=== PATIENT | female | born 1940 | race Caucasian/White ===

== ENCOUNTER 2018-02-13 14:34 | Outpatient (CLI) | payer MEDICARE, OTHER | END 2018-02-13 14:35 | disposition home or self-care (01) | LOC: BICMAMMO 14:34 | PROVIDERS: ATTEND Family Medicine | DX: Z12.31 Encounter for screening mammogram for malignant neoplasm of breast (principal); Z13.820 Encounter for screening for osteoporosis; M85.89 Other specified disorders of bone density and structure, multiple sites | CPT/HCPCS: 77063; 77067; 77080 ==

== ENCOUNTER 2018-07-26 10:46 | Outpatient (CLI) | payer MEDICARE, OTHER ==
[~2018-07-26 10:46] MED LIST: Furosemide 40 MG/4 ML VIAL ONE
--- NOTE | 2018-07-26 16:09 | NM ---
NUCLEAR MEDICINE RENOGRAM HIPN LASIX 07/26/18 HISTORY: Hydronephrosis. COMPARISON: CT chest, abdomen and pelvis 06/27/18. FINDINGS: The exam was performed after the intravenous administration of 8.8 millicuries technetium 99m MAG3. 2 6.3 mg Lasix IV was administered a few minutes prior to imaging. There split function is 44.3% on the left and 35.7% on the right. The time of one half max is 37.5 mi nutes on the left and 7.8 minutes on the right. There is delayed asymmetric enhancement of the left kidney relative to the right. There is also delay ed excretion of the left kidney relative to the right. IMPRESSION: 1. Mild left hydronephrosis with increased T1/2 max of 37.5 minutes. 2. Split function 44.3% on the left and 55.7% on the right. POS: [facility] [place]
== END 2018-07-26 10:47 | disposition home or self-care (01) ==
LOC: NM 10:46
PROVIDERS: ATTEND Urology
DX: N13.39 Other hydronephrosis (principal)
CPT/HCPCS: 78708; A4641; A9562; J1940

== ENCOUNTER 2018-11-18 00:19 | Outpatient (CLI) | payer MEDICARE, OTHER ==
[2018-11-18 16:49] LABS: Hemoglobin 9.7 g/dL (12.0-16.0); Mean Corpuscular HGB CONC 33.5 g/dL (32.0-36.0); Mean Corpuscular Hemoglobin 31.5 pg (27.0-31.0); Mean Corpuscular Volume 94.1 fL (78.0-98.0); Mean Platelet Volume 8.2 fL (7.4-10.4); Platelet Count 158 thou/uL (130-400); RBC Distribution Width 11.5 % (11.5-14.5); Red Blood Cell (RBC) Count 3.06 mill/uL (4.20-5.40); White Blood Cell (WBC) Count 5.6 thou/uL (4.8-10.8)
[2018-11-18 17:30] LABS: Anion Gap 12 mmol/L (10-20); BUN (Urea Nitrogen) 37 mg/dL (9.8-20.1); Calc. Creatinine Clearance 0 mL/min (70-130); Calcium 9.9 mg/dL (7.8-10.44); Carbon Dioxide 29 mmol/L (23-31); Chloride 106 mmol/L (98-107); Estimated GFR-MDRD 34; Glucose 78 mg/dL (83-110); Potassium 4.6 mmol/L (3.5-5.1); Sodium 142 mmol/L (136-145)
== END 2018-11-18 00:20 | disposition home or self-care (01) ==
LOC: LABBT 00:19
PROVIDERS: ATTEND Urology
DX: Z01.812 Encounter for preprocedural laboratory examination (principal); N13.39 Other hydronephrosis; Q61.9 Cystic kidney disease, unspecified; R39.11 Hesitancy of micturition; R35.1 Nocturia; R31.29 Other microscopic hematuria; Z87.440 Personal history of urinary (tract) infections
CPT/HCPCS: 80048; 81001; 85027; 87086; 87186

== ENCOUNTER 2018-11-26 08:00 | Day surgery (SDC) | payer MEDICARE, OTHER ==
[2018-11-18 15:31] VITALS: BMI 19.3
[2018-11-26] MEDS ORDERED: Fentanyl 100 MCG/2 ML VIAL ONE (10:02)
[2018-11-26] MEDS ORDERED: Iothalamate Meglumine 60% 50 ML VIAL FS ONE (10:13)
--- NOTE | 2018-11-26 11:01 | RAD ---
Exam: Retrograde pyelogram: HISTORY: Renal stone Contrast is injected with dilatation of the left upper renal collecting system. There appears to be g ood drainage on post drainage imaging. IMPRESSION: Dilatation of the left upper renal collecting system.
[2018-11-26] MEDS ORDERED: Phenazopyridine HCl 97.5 MG TABLET ONE ×2 (12:56)
[2018-11-26] MEDS ORDERED: diphenhydrAMINE 50 MG/ML VIAL ONE (15:16)
[2018-11-26] MEDS ORDERED: Lidocaine 1% PF 5 ML VIAL ONE (15:16)
[2018-11-26] MEDS ORDERED: Dexamethasone 20 MG/5 ML VIAL ONE (15:16)
[2018-11-26] MEDS ORDERED: PROPOFOL 200 MG/20 ML VIAL ONE (15:16)
[2018-11-26] MEDS ORDERED: Ondansetron PF 4 MG/2 ML Vial ONE (15:16)
--- NOTE | 2018-11-26 21:05 | OP ---
DATE OF PROCEDURE: 11/26/2018 PREOPERATIVE DIAGNOSIS: Left hydronephrosis with obstruction. POSTOPERATIVE DIAGNOSIS: Left hydronephrosis with obstruction, presumably from mass effect from a simple renal cyst. ANESTHESIA: General with laryngeal mask airway. FINDINGS: Normal caliber ureter into a narrowing at the UPJ, which appeared consistent with obstruction from the mass effect from the cyst previously noted on imaging before the procedure. SPECIMENS: Urine from the left renal pelvis sent for cytology. COMPLICATIONS: No complications. DRAIN REMAINING: A 6 x 28. BLOOD LOSS: No blood loss. INDICATIONS FOR PROCEDURE: The patient is a 78-year-old female who is seen in the office with weight loss over the past couple of years; however, hydronephrosis was instantly noted and the renal scan showed that there was obstruction. She has unusual anatomy and she has a large simple cyst that does appear to be pressing on the renal pelvis and other than that, I saw no concern for a crossing vessel or filling defect that would be sales promotion representative of a source of obstruction, so she was set up for a retrograde pyelogram and possible stent. DESCRIPTION OF PROCEDURE: The patient was brought into the room by Anesthesia, laid on the table into the supine position. After receiving general anesthetic, her legs were placed in lithotomy position and her perineum was prepped and draped in sterile fashion. Using a 21-Afghan cystoscope and 30-degree lens, the urethra was traversed and bladder inspected. The left UO was intubated with the Pollack catheter. A retrograde pyelogram was performed revealing a fine caliber ureter without any hydronephrosis up to the level of the UPJ where there was what appeared to be mass effect from a large simple cyst that was creating obstruction at this area and then significant hydronephrosis was noted. At this point, a wire was easily advanced into the hydronephrotic portion. The Pollack catheter advanced over it and then approximately 15 mL yellow urine was sent for specimen for cytology. Measurements were taken for 6 x 28 double-J, which was placed over the wire with a coil visualized in the renal pelvis and a coil visualized in the bladder. It did note that the caliber of the ureter did appear small as the stent was difficult to pass, however, had not been wet prior to placement, but it was hard to say whether this was more difficult than normal based on the this. At this time, the scope was broken apart, the bladder drained and then removed in its entirety, leaving the internal double-J stent. The patient was awakened, and transferred to PACU in stable condition. Job ID: [id number] MTDD
== END 2018-11-26 14:00 | disposition home or self-care (01) ==
LOC: SDC 08:00
PROVIDERS: ATTEND Urology
PROC: BT1FZZZ Fluoroscopy of Left Kidney, Ureter and Bladder (ICD-10-PCS; principal; 2018-11-26)
PROC: 0T778DZ Dilation of Left Ureter with Intraluminal Device, Via Natural or Artificial Opening Endoscopic (ICD-10-PCS; 2018-11-26)
DX: N13.39 Other hydronephrosis (principal); N13.8 Other obstructive and reflux uropathy; Q61.01 Congenital single renal cyst; E78.5 Hyperlipidemia, unspecified; E05.00 Thyrotoxicosis with diffuse goiter without thyrotoxic crisis or storm; Z87.440 Personal history of urinary (tract) infections; Z79.899 Other long term (current) drug therapy; Z88.1 Allergy status to other antibiotic agents; Z88.5 Allergy status to narcotic agent
CPT/HCPCS: 52332; 74420; 88112; C1758; C1769; J0690; J3010; Q9961

== ENCOUNTER 2018-12-05 09:13 | Outpatient (CLI) | payer MEDICARE, OTHER ==
--- NOTE | 2018-12-05 16:56 | NM ---
Radionucleotide renogram HISTORY: Left hydronephrosis. COMPARISON: 07/26/2018. FINDINGS: Arterial phase images show significantly increased uptake of the right kidney compared to t he left. Right kidney: Time to maximum 2.2 minutes. Half max 11.4 minutes. Left kidney: Time to maximum reported at 0.35 minutes, although graft shows that there is poor uptake of the left kidney throughout the exam. Half max unable to be calculated. Due to technical factors at the time of the exam, GFR is unable to be accurately calculated. The right kidney accounts for 73% of uptake in the left 27%. IMPRESSION: Poor uptake and function of the left kidney without evidence of obstruction. Right kidney accounts for 73% of the uptake.
== END 2018-12-05 09:14 | disposition home or self-care (01) ==
LOC: NM 09:13
DX: N13.39 Other hydronephrosis (principal); Q61.9 Cystic kidney disease, unspecified
CPT/HCPCS: 78708; A4641; A9562

== ENCOUNTER 2019-01-27 11:20 | Outpatient (CLI) | payer MEDICARE, OTHER ==
--- NOTE | 2019-01-28 09:03 | NM ---
Nuclear medicine renogram with furosemide: DATE: 01/27/2019 HISTORY: 78-year-old female with severe left hydronephrosis. TECHNIQUE: 26.2 mg Lasix (furosemide) injected IV. 15 minutes later, 8.2 mCi of technetium 99m-MAG3 injected IV. Immediate post injection dynamic scintigraphy of abdomen and pelvis performed with Jalloh catheter in place, for 50 minutes. Counts obtained over the kidneys, and time-activity curve plotted. FINDINGS: Parameter: Left right Split function: 30 %, 70 % Time of max: 4.4 min, 4.4 minutes Time of half max: 27 min, 12 minutes On the time-activity curve, the peak activity of both the right and left kidney occur at the same geovany e. The right renal peak is much higher than the left. The left renal peak is higher than it was on 12/05/2018, when it was fairly flat. On 12/05/2018, the washout curve and washout scintigraphy of the lef t kidney was so flat that there was no half-time of maximum. On the current study, there is a half-time of maximum for the left kidney, albeit delayed. The time to peak of 4.4 minutes is normal f or both kidneys. The half-time of washout for the right kidney is slightly delayed. IMPRESSION: Decreased left renal function, with slow washout. However, this has improved compared to 12/05/2018.
== END 2019-01-27 11:21 | disposition home or self-care (01) ==
LOC: NM 11:20
PROVIDERS: ATTEND Urology
DX: N28.89 Other specified disorders of kidney and ureter (principal)
CPT/HCPCS: 78708; A4641; A9562

== ENCOUNTER 2019-03-07 08:33 | Outpatient (CLI) | payer MEDICARE, OTHER ==
[~2019-03-07 08:33] MED LIST changes: -Furosemide 40 MG/4 ML VIAL ONE; +Sodium Bicarbonate 2.5 MEQ/5 ML VIAL ONE
--- NOTE | 2019-03-07 10:18 | ULT ---
RENAL ULTRASOUND: Date: 03/07/2019 COMPARISON: Multiple prior imaging studies including CT examinations, most recent dated 03/05/2019. HISTORY: Renal disorder, reevaluate left-sided hydronephrosis. TECHNIQUE: Multiplanar grayscale sonographic imaging of the kidneys and urinary bladder obtained. FINDINGS: Right kidney measures 10.0 x 4.0 x 3.6 cm and left kidney measures 12.9 x 6.4 x 6.8 cm. There are cysts within the right kidney measuring up to 1.5 x 2.2 x 2.1 cm. There is prominent left-sided hydronephrosis. There is debris filling the dilated calices and renal p veronique on the left which may signify hemorrhage, infected material, or tumor. There is a 4.8 x 4.3 x 4.4 cm cyst within the inferior aspect of the left kidney. Urinary bladder is nonvisualized. IMPRESSION: Prominent left-sided hydronephrosis with nonspecific echogenic debris filling the dilated renal pelvis and calices. This could be seen on the basis of hemorrhage, infection, and/or tumor. Of note, left-sided hydronephrosis has been seen on numerous prior imaging studies dating back to . CODE T Transcribed Date/Time: 03/07/2019 10:25 AM
== END 2019-03-07 08:34 | disposition home or self-care (01) ==
LOC: ULT 08:33
PROVIDERS: ATTEND Urology
DX: N28.89 Other specified disorders of kidney and ureter (principal); N13.30 Unspecified hydronephrosis
CPT/HCPCS: 76770; J1568

== ENCOUNTER 2019-03-26 06:42 | Outpatient (CLI) | payer MEDICARE, OTHER ==
[2019-03-26 12:24] LABS: #Basophils 0.1 thou/uL (0.0-0.2); #Lymphocytes 1.9 thou/uL (1.20-3.40); #Monocytes 0.8 thou/uL (0.11-0.59); #Neutrophils 7.8 thou/uL (1.40-6.50); %Basophils 0.5 % (0.0-1.0); %Eosinophils 0.3 % (0.0-10.0); %Lymphocytes 18.1 % (21.0-51.0); %Monocytes 7.8 % (0.0-10.0); %Neutrophils 73.4 % (42.0-75.0); Hemoglobin 8.1 g/dL (12.0-16.0); Mean Corpuscular HGB CONC 32.8 g/dL (32.0-36.0); Mean Corpuscular Hemoglobin 30.3 pg (27.0-31.0); Mean Corpuscular Volume 92.5 fL (78.0-98.0); Mean Platelet Volume 6.3 fL (7.4-10.4); Platelet Count 436 thou/uL (130-400); RBC Distribution Width 12.3 % (11.5-14.5); Red Blood Cell (RBC) Count 2.68 mill/uL (4.20-5.40); White Blood Cell (WBC) Count 10.6 thou/uL (4.8-10.8)
[2019-03-26 12:36] LABS: INR-International Normal Ratio 1.4; Prothrombin Time 17.4 SEC (12.0-14.7)
[2019-03-26 12:37] LABS: PTT 41.8 SEC (22.9-36.1)
[2019-03-26 12:47] LABS: Bilirubin Negative (Negative); Blood, Urine Trace (Negative); Clarity Clear (Clear); Glucose, Urine (Dipstick) Normal (Negative); Leukocyte 75 Leu/uL (Negative); Nitrite Negative (Negative); Protein, Urine (Dipstick) 30 mg/dL (Neg-Trace); Squamous Epithelial 0-3 HPF (0-3); Urobilinogen Normal mg/dL (Less than 2)
[2019-03-26 13:14] LABS: Bacteria/HPF None Seen HPF (None Seen)
[2019-03-26 13:25] LABS: Anion Gap 13 mmol/L (10-20); BUN (Urea Nitrogen) 28 mg/dL (9.8-20.1); Calc. Creatinine Clearance 0 mL/min (70-130); Calcium 9.3 mg/dL (7.8-10.44); Carbon Dioxide 24 mmol/L (23-31); Chloride 100 mmol/L (98-107); Estimated GFR-MDRD 37; Glucose 88 mg/dL (83-110); Potassium 4.2 mmol/L (3.5-5.1); Sodium 133 mmol/L (136-145)
== END 2019-03-26 06:43 | disposition home or self-care (01) ==
LOC: LABBT 06:42
PROVIDERS: ATTEND Urology
DX: Z01.818 Encounter for other preprocedural examination (principal); N28.89 Other specified disorders of kidney and ureter; Q61.9 Cystic kidney disease, unspecified
CPT/HCPCS: 80048; 81001; 85025; 85610; 85730; 87086; 93005; 93010

== ENCOUNTER 2019-04-03 11:38 | Day surgery (SDC) | payer MEDICARE, OTHER ==
[2019-03-26 10:44] VITALS: BMI 17.9
[2019-04-03] MEDS ORDERED: Levofloxacin 500 mg/D5W 100 ml Premix Bag ONE (11:56)
[2019-04-03] MEDS ORDERED: Iothalamate Meglumine 60% 50 ML VIAL FS ONE ×2 (12:03→12:11)
[2019-04-03] MEDS ORDERED: Fentanyl 100 MCG/2 ML VIAL ONE ×2 (12:37)
--- NOTE | 2019-04-03 13:49 | RAD ---
EXAM: Retrograde IVP HISTORY: Left ureteral stent placement COMPARISON: None FINDINGS/IMPRESSION: Limited intraoperative fluoroscopic views of a retrograde IVP were submitted for interpretation. Contrast is seen in the left renal collecting system. The contrast terminates into a round structure which could represent an enlarged renal pelvis. No obvious filling defects are seen .
--- NOTE | 2019-04-03 21:06 | OP ---
DATE OF PROCEDURE: 04/03/2019 SERVICE: Urology. PREOPERATIVE DIAGNOSIS: Left hydronephrosis. POSTOPERATIVE DIAGNOSIS: Left ureteropelvic junction obstruction. PROCEDURES PERFORMED: Left retrograde pyelogram, left ureteroscopy, and balloon dilation of possible stricture. INDICATIONS FOR PROCEDURE: Ms. Zambrano is a 78-year-old white female, who was initially transferred to [place] from Dr. Yates. She had a ureteral stent in for hydronephrosis. There was some concern that she may have an obstruction from a nearby parapelvic cyst. The stent was removed, and the cyst was decompressed in Interventional Radiology, but the hydronephrosis persisted despite cyst decompression. She is now coming in for evaluation of the mi'kmaq ureter to look for strictures or other types of blockages. Risks and benefits of the procedure have been discussed, and she has agreed to proceed forward. DESCRIPTION OF PROCEDURE: After identification of armband and verification of consent, the patient was brought back to the operating room, where she underwent general anesthesia with an LMA. She was then placed in the dorsal lithotomy position and prepped and draped in usual sterile fashion. After appropriate time-out, a lubricated 22-Latvian rigid cystoscope was introduced per urethra into the bladder. Attention was turned to the left ureteral orifice, which was cannulated with a 0.035 Sensor wire up to the level of the kidney. The dual-lumen catheter was attempted to be advanced over the Sensor wire, but there was resistance met in the distal ureter. Therefore, a semi-rigid ureteroscope was brought in alongside the Sensor wire and used to cannulate into the distal ureter. There was a mildly narrowed segment, which was gently dilated using the ureteroscope. Prior to doing this, a retrograde pyelogram was performed using a 5-Latvian cone-tipped catheter via the cystoscope. This demonstrated a slender normal-caliber ureter with a slightly dilated renal pelvis. After that was removed, the ureteroscopy did commence as we discussed. We gently dilated the distal narrowing with ureteroscope and it was able to advance forward until the proximal ureter. No other strictures were encountered. The Super Stiff wire was then placed through the lumen of the ureteroscope and into the renal pelvis, and then the ureteroscope withdrawn. A flexible ureteroscope was then advanced over the Super Stiff wire up to the level of the UPJ. The ureteroscope was able to be passed easily through the UPJ into the kidney without any significant narrowing, but there did appear to be compression and narrowing of the renal pelvis. Despite full flow irrigation, this area remained narrowed indicating some type of extrinsic compression. There does appear to be a pulsating mass that is causing the compression, which most likely indicates that this is a crossing vessel or nearby renal artery which is causing the blockage rather than the cyst, that did not result in decompression of the kidney with cyst decompression. The ureteroscope was withdrawn, and a Uretero-Max 12-Latvian dilator balloon was positioned over the UPJ. This was dilated to 12-Latvian for 4 cm length to 26 atmospheres, and then taken down and removed. Repeat ureteroscopy with the flexible scope demonstrated the same type of compression with only mild opening of the UPJ. I am not very hopeful that this will stay open with dilation alone. I elected to go ahead and leave the stent in for the time being, but the patient will most likely require a pyeloplasty for definitive correction. Given her age and frailty, she may elect not to do this, but we will discuss this later on an outpatient basis. The ureteroscope was withdrawn. The ureteral stent was advanced over the Sensor wire back into the ureter using fluoroscopic guidance until it was positioned properly. The wire was then removed leaving a good curl in the kidney and a partial curl in the bladder. The cystoscope was then placed and using flexible graspers, the stent was pulled out approximately 1 cm until there was a good curl in the kidney and a good curl in the bladder. The bladder was then emptied, and cystoscope was removed. The patient was then awakened, taken to PACU for recovery in stable condition. COMPLICATIONS: None. ESTIMATED BLOOD LOSS: Minimal. RETAINED TUBES AND DRAINS: A 6 x 24 double-J stent on the left. SPECIMENS: None. DISPOSITION: The patient will be discharged home and follow up with me in 2 weeks for stent removal, at which time if the hydronephrosis returns, we will discuss definitive management either with the pyeloplasty or options to just remove the stent and let the kidney stay as it is. Job ID: [id number]
== END 2019-04-03 16:00 | disposition home or self-care (01) ==
LOC: SDC 11:38
PROVIDERS: ATTEND Urology
PROC: 0T778DZ Dilation of Left Ureter with Intraluminal Device, Via Natural or Artificial Opening Endoscopic (ICD-10-PCS; principal; 2019-04-03)
DX: N13.0 Hydronephrosis with ureteropelvic junction obstruction (principal); E78.5 Hyperlipidemia, unspecified; N18.3 Chronic kidney disease, stage 3 (moderate); M47.816 Spondylosis without myelopathy or radiculopathy, lumbar region; Z79.899 Other long term (current) drug therapy; Z88.1 Allergy status to other antibiotic agents
CPT/HCPCS: 52345; 74420; C1769; J1956; J3010

== ENCOUNTER 2019-09-02 13:17 | Outpatient (CLI) | payer OTHER | END 2019-09-02 13:18 | disposition home or self-care (01) | LOC: DTY/OP 13:17 | PROVIDERS: ATTEND Family Medicine | DX: E43 Unspecified severe protein-calorie malnutrition (principal) | CPT/HCPCS: 97802 ==